=== PATIENT | male | born 1975 | race Two or more races ===

== ENCOUNTER 2024-02-25 11:20 | Emergency (ER) | payer MEDICAID ==
[~2024-02-25] VITALS: Ht 182.9 cm; Wt 110.7 kg
[2024-02-25 11:24] VITALS: TEMP 99.8
[2024-02-25 12:22] LABS: BASOPHILS # (AUTO) 0.1 K/uL (0.0-0.2); NEUTROPHILS # (AUTO) 9.7 K/uL (1.8-8.9); WHITE BLOOD COUNT (AUTO) 11.7 K/uL (4.3-11.0)
[2024-02-25 12:25] LABS: BASOPHILS % (AUTO) 0.5 % (0.0-2.0); EOSINOPHILS % (AUTO) 0.3 % (0.0-6.0); HEMATOCRIT 32 % (39-51); HEMOGLOBIN 10.2 g/dL (13.5-17.5); LYMPHOCYTES % (AUTO) 8.6 % (20.0-44.0); MEAN CORPUSCULAR HEMOGLOBIN 33 PG (26.0-33.0); MEAN CORPUSCULAR HGB CONC 32 g/dl (31.0-36.0); MEAN CORPUSCULAR VOLUME 102 fL (80-96); MONOCYTES # (AUTO) 0.8 K/uL (0.1-1.30); MONOCYTES % (AUTO) 7.2 % (2.0-12.0); NEUTROPHILS % (AUTO) 83.4 % (43.0-81.0); PLATELET COUNT (AUTO) 572 K/uL (150-450); RED CELL DISTRIBUTION WIDTH 18.2 % (11.5-15.0)
[2024-02-25 12:40] LABS: INR 1.08 (0.91-1.10); PARTIAL THROMBOPLASTIN TIME 30.5 SEC (24.3-34.3); PROTHROMBIN TIME 11.4 SECS (9.2-11.1)
[2024-02-25 12:41] LABS: APPEARANCE,URINE CLOUDY (CLEAR); BILIRUBIN,URINE NEGATIVE (NEGATIVE); BLOOD, URINE 1+ Ery/uL (NEGATIVE); COLOR,URINE YELLOW (YELLOW); KETONES,URINE TRACE mg/dL (NEGATIVE); LEUKOCYTE ESTERASE ,URINE 3+ (NEGATIVE); NITRITE, URINE POSITIVE (NEGATIVE); PH,URINE 7.5 (5.0-8.0); PROTEIN,URINE 2+ mg/dl (NEGATIVE); UGLUCOSE NEGATIVE (NEGATIVE)
[2024-02-25 12:41] LABS: ALBUMIN 2.3 g/dL (3.4-5.0); BILIRUBIN,DIRECT 0.1 mg/dL (0.0-0.2); BILIRUBIN,TOTAL 0.3 mg/dL (0.2-1.0); CALCIUM, SERUM 10.8 mg/dL (8.5-10.1); CREATININE 0.9 mg/dL (0.6-1.3); POTASSIUM 4.4 mmol/L (3.5-5.1); TOTAL PROTEIN, SERUM 8.7 g/dL (6.4-8.2)
[2024-02-25 12:43] LABS: LACTIC ACID 1.3 mmol/L (0.4-2.0)
[2024-02-25] MEDS: CEFEPIME 1 GM in IV D5W 50 ML IV ONE (12:53)
[2024-02-25 13:10] VITALS: O2SAT 100
[2024-02-25 13:24] LABS: ADD URINE CULTURE YES; BACTERIA,URINE Moderate /HPF (None Seen); CALCIUM OXALATE CRYSTALS,UR Few /HPF (None Seen); SQUAMOUS EPITHELIAL CELL,UR Few /HPF (None Seen); WBC,URINE 51-80 /HPF (0-3)
[2024-02-25 15:00] VITALS: BP 107/91
== END 2024-02-25 16:40 | disposition short-term general hospital (02) ==
LOC: ER 11:24
DX: S06.890A Other specified intracranial injury without loss of consciousness, initial encounter (principal); J90 Pleural effusion, not elsewhere classified; J18.9 Pneumonia, unspecified organism; R09.02 Hypoxemia; I12.9 Hypertensive chronic kidney disease with stage 1 through stage 4 chronic kidney disease, or unspecified chronic kidney disease; E11.22 Type 2 diabetes mellitus with diabetic chronic kidney disease; N18.9 Chronic kidney disease, unspecified; G40.909 Epilepsy, unspecified, not intractable, without status epilepticus; Z20.822 Contact with and (suspected) exposure to COVID-19; Z99.11 Dependence on respirator [ventilator] status; V49.69XA Unspecified car occupant injured in collision with other motor vehicles in traffic accident, initial encounter; Y93.89 Activity, other specified; Y92.488 Other paved roadways as the place of occurrence of the external cause; Y99.8 Other external cause status
CPT/HCPCS: 99285; 96365; 71045; 87426; 93005; 84145; 85025; 80048; 87040 ×2; 87086; 83605; 80076; 81001; 36415; 84484; 85730; 31720; J7060; J0692

== ENCOUNTER 2024-12-15 15:19 | Emergency (ER) | payer MEDICAID ==
[~2024-12-15] VITALS: Ht 182.9 cm; Wt 92.6 kg
[2024-12-15 15:26] VITALS: TEMP 99.3
[2024-12-15] MEDS: CEFEPIME 1 GM in IV D5W 50 ML IV ONE (15:30)
[2024-12-15 16:03] LABS: ABG BASE EXCESS 1.3 mmol/L (-2.0-3.0); ABG OXYGEN SATURATION 99.8 % (94.0-98.0); ABG PCO2 36.5 mmHg (35.0-48.0); ABG PH 7.455 (7.350-7.450); ABG PO2 288.4 mmHg (83.0-108.0); ABG TOTAL HEMOGLOBIN 9.5 G/dL (13.5-17.5); COHb 0.3 % (0.5-1.5); MetHb 0.3 % (0.0-1.5); O2Hb 99.2 % (94.0-97.0); PEEP,BG 5 cm H2O; SITE, ABG RIGHT RADIAL; VT, ABG 600 mL
[2024-12-15 16:56] LABS: BASOPHILS % (AUTO) 0.6 % (0.0-2.0); EOSINOPHILS % (AUTO) 0.2 % (0.0-6.0); HEMATOCRIT 26 % (39-51); HEMOGLOBIN 8.6 g/dL (13.5-17.5); LYMPHOCYTES # (AUTO) 1.1 K/uL (0.8-4.8); LYMPHOCYTES % (AUTO) 15.1 % (20.0-44.0); MEAN CORPUSCULAR HEMOGLOBIN 32 PG (26.0-33.0); MEAN CORPUSCULAR HGB CONC 33 g/dl (31.0-36.0); MEAN CORPUSCULAR VOLUME 97 fL (80-96); MONOCYTES # (AUTO) 0.9 K/uL (0.1-1.30); MONOCYTES % (AUTO) 12.2 % (2.0-12.0); NEUTROPHILS # (AUTO) 5.2 K/uL (1.8-8.9); NEUTROPHILS % (AUTO) 71.9 % (43.0-81.0); PLATELET COUNT (AUTO) 507 K/uL (150-450); RED BLOOD CELL COUNT(AUTO) 2.65 MIL/uL (4.5-6.0); RED CELL DISTRIBUTION WIDTH 20.1 % (11.5-15.0); WHITE BLOOD COUNT (AUTO) 7.3 K/uL (4.3-11.0)
[2024-12-15 17:06] LABS: CALCIUM, SERUM 9.5 mg/dL (8.5-10.1); POTASSIUM 3.9 mmol/L (3.5-5.1)
[2024-12-15 17:13] LABS: LACTIC ACID 1.1 mmol/L (0.4-2.0)
[2024-12-15] MEDS ORDERED: IPRA0.2S9 IH ×2 (17:18)
[2024-12-15] MEDS ORDERED: ACET160S GT ×2 (17:18)
[2024-12-15] MEDS ORDERED: ALBU2.5V38 IH ×2 (17:18)
[2024-12-15] MEDS ORDERED: AMIN30LI66 GT (17:19)
[2024-12-15] MEDS ORDERED: MAGN400O6 GT (17:19)
[2024-12-15] MEDS ORDERED: LEVE100S GT (17:19)
[2024-12-15] MEDS ORDERED: CHLO473M5 PO (17:19)
[2024-12-15] MEDS ORDERED: PANT40SU2 GT (17:19)
[2024-12-15] MEDS ORDERED: NA P133E RC (17:19)
[2024-12-15] MEDS ORDERED: ATEN25TA GT (17:19)
[2024-12-15] MEDS ORDERED: CLON0.1T GT (17:19)
[2024-12-15] MEDS ORDERED: ASCO500L2 GT (17:19)
[2024-12-15] MEDS ORDERED: ACET-73 GT (17:19)
[2024-12-15] MEDS ORDERED: MONT10TA22 GT (17:19)
[2024-12-15] MEDS ORDERED: ZINC220C6 GT (17:19)
[2024-12-15] MEDS ORDERED: SENN-261 GT (17:19)
[2024-12-15] MEDS ORDERED: MIDO5TAB4 GT (17:19)
[2024-12-15] MEDS ORDERED: DOCU100C36 GT (17:19)
[2024-12-15] MEDS ORDERED: FAMO20TA8 GT (17:19)
[2024-12-15] MEDS ORDERED: L. A1TAB10 GT (17:19)
[2024-12-15] MEDS ORDERED: MULT-213 GT (17:19)
[2024-12-15 17:20] LABS: ALBUMIN 1.9 g/dL (3.4-5.0); BILIRUBIN,DIRECT 0.1 mg/dL (0.0-0.2); BILIRUBIN,TOTAL 0.2 mg/dL (0.2-1.0); TOTAL PROTEIN, SERUM 8.1 g/dL (6.4-8.2)
[2024-12-15] MEDS: VANCOMYCIN 1 GM in IV D5W 250 ML IV ONE (17:30)
[2024-12-15 17:38] LABS: INR 1.1 (0.91-1.10); PARTIAL THROMBOPLASTIN TIME 29.5 SEC (24.3-34.3); PROTHROMBIN TIME 11.6 SECS (9.2-11.1)
[2024-12-15 19:00] VITALS: BP 122/77; O2SAT 99
[2024-12-15 19:51] LABS: APPEARANCE,URINE CLOUDY (CLEAR); BILIRUBIN,URINE NEGATIVE (NEGATIVE); BLOOD, URINE 2+ Ery/uL (NEGATIVE); COLOR,URINE YELLOW (YELLOW); KETONES,URINE NEGATIVE (NEGATIVE); LEUKOCYTE ESTERASE ,URINE 3+ (NEGATIVE); NITRITE, URINE POSITIVE (NEGATIVE); PROTEIN,URINE 2+ mg/dl (NEGATIVE); UGLUCOSE NEGATIVE (NEGATIVE); UROBILINOGEN,URINE 0.2 EU/dL (0.2)
[2024-12-15 20:42] LABS: RBC,URINE 21-50 /HPF (0-2); WBC,URINE 51-80 /HPF (0-3)
[2024-12-15 20:43] LABS: ADD URINE CULTURE YES; BACTERIA,URINE 3+ /HPF (None Seen)
== END 2024-12-15 21:28 | disposition short-term general hospital (02) ==
LOC: ER 15:22
DX: J18.9 Pneumonia, unspecified organism (principal); J90 Pleural effusion, not elsewhere classified; I10 Essential (primary) hypertension; E11.9 Type 2 diabetes mellitus without complications; G82.20 Paraplegia, unspecified; Z99.11 Dependence on respirator [ventilator] status; Z20.822 Contact with and (suspected) exposure to COVID-19; Z86.2 Personal history of diseases of the blood and blood-forming organs and certain disorders involving the immune mechanism; Z79.899 Other long term (current) drug therapy
CPT/HCPCS: 99291; 96365; 71045; 96367; 87426; 93005; 84145; 85025; 80048; 87077; 87040 ×2; 87086; 83605; 80076; 87186 ×2; 81001; 36415; 85730; 87081; J3370; J7060; A4223; J0692